=== PATIENT | male | born 1975 | race African-American/Black ===

== ENCOUNTER 2017-05-26 22:48 | Emergency (ER) | payer OTHER ==
[~2017-05-26] VITALS: Ht 170.2 cm; Wt 103.4 kg
--- NOTE | 2017-05-26 23:39 | ED.ADGEN ---
Past History Past Medical History: Diabetes, High Cholesterol, Pancreatitis, Other Adult General Chief Complaint Chief Complaint "Maybe I got ahold of some bad food or something.. I hurt in my abd. everywhere.. Nausea .. cramping. " HPI HPI Patient is a 41 year old male who presents with above hx and complaints of abd. pain, nausea , vomiting. Pt. denies travel, specific ill contacts, trauma or change in meds. Pt. localized pain primary in mid abdomen. Pt. denies any changes in stool or dysuria. Pt. reports increased urination because not taken his diabetic meds. Pt. states he never had any pancreatitis, colitis or gastritis. Pt. advise he has not drank any alcohol for over 9 years. Pt. has been in [facility] patient 10 treated for the past 9 years and is currently house at [facility]. Review of Systems Review of Systems Constitutional: Denies fever or chills [] Eyes: Denies change in visual acuity, redness, or eye pain [] HENT: Denies nasal congestion or sore throat [] Respiratory: Denies cough or shortness of breath [] Cardiovascular: No additional information not addressed in HPI [] GI: Complaints of abdominal pain, nausea, vomiting, . Denies bloody stools or diarrhea [] : Denies dysuria or hematuria [] Musculoskeletal: Denies back pain or joint pain [] Integument: Denies rash or skin lesions [] Neurologic: Denies headache, focal weakness or sensory changes [] Endocrine: Denies polyuria or polydipsia [] Family History Family History Non-contributory Current Medications Current Medications Current Medications Medications (Trade) Dose Ordered Sig/Luis Start Time Stop Time Status Last Admin Dose Admin Famotidine (Pepcid) 20 mg 1X ONCE 05/27/17 01:45 05/27/17 01:46 DC 05/27/17 02:10 20 MG Iohexol (Omnipaque 240 Mg/ml) 50 ml 1X ONCE 05/27/17 03:00 05/27/17 03:01 DC 05/27/17 03:16 50 ML Iohexol (Omnipaque 300 Mg/ml) 75 ml 1X ONCE 05/27/17 03:00 05/27/17 03:01 DC Morphine Sulfate (Morphine 10mg Syringe) 10 mg 1X ONCE 05/27/17 01:45 05/27/17 01:46 DC 05/27/17 02:10 10 MG Ondansetron HCl (Zofran) 8 mg 1X ONCE 05/27/17 01:45 05/27/17 01:46 DC 05/27/17 02:10 8 MG See Nursing for home meds. Allergies Allergies Allergies Coded Allergies Type Severity Reaction Last Updated Verified No Known Drug Allergies 05/27/17 No Physical Exam Physical Exam Constitutional: moderate distress, non-toxic appearance. [] HENT: Normocephalic, atraumatic, bilateral external ears normal, oropharynx moist, no oral exudates, nose normal. Multiple tattoos. Eyes: PERRLA, EOMI, conjunctiva normal, no discharge. [] Neck: Normal range of motion, no tenderness, supple, no stridor. [] Cardiovascular:Bradycardia rate regular rhythm, no murmur [] Lungs & Thorax: Bilateral breath sounds equal at apexes on auscultation [] Abdomen: Bowel sounds normal, soft, generalized tenderness, no masses, no pulsatile masses. Localizes to mid abd. with palpation and rebound. Skin: Warm, dry, no erythema, no rash. Tattoos. Back: No tenderness, no CVA tenderness. [] Extremities: No tenderness, no cyanosis, no clubbing, ROM intact, no edema. [] Neurologic: Alert and oriented X 3, normal motor function, normal sensory function, no focal deficits noted. [] Psychologic: Affect normal, judgement normal, mood normal. [] Current Patient Data Vital Signs Vital Signs Date Time Temp Pulse Resp B/P (MAP) Pulse Ox O2 Delivery O2 Flow Rate FiO2 05/27/17 02:10 97 05/27/17 01:10 98.2 77 16 Lab Results Laboratory Tests Test 05/27/17 02:10 05/27/17 03:30 05/27/17 04:20 White Blood Count 7.2 x10^3/uL (4.0-11.0) Red Blood Count 5.29 x10^6/uL (4.30-5.70) Hemoglobin 14.5 g/dL (13.0-17.5) Hematocrit 42.5 % (39.0-53.0) Mean Corpuscular Volume 81 fL (79-100) Mean Corpuscular Hemoglobin 27 pg (25-35) Mean Corpuscular Hemoglobin Concent 34 g/dL (31-37) Red Cell Distribution Width 14.1 % (11.5-14.5) Platelet Count 271 x10^3/uL (140-400) Neutrophils (%) (Auto) 64 % (31-73) Lymphocytes (%) (Auto) 26 % (24-48) Monocytes (%) (Auto) 8 % (0-9) Eosinophils (%) (Auto) 2 % (0-3) Basophils (%) (Auto) 1 % (0-3) Neutrophils # (Auto) 4.6 x10^3uL (1.8-7.7) Lymphocytes # (Auto) 1.8 x10^3/uL (1.0-4.8) Monocytes # (Auto) 0.6 x10^3/uL (0.0-1.1) Eosinophils # (Auto) 0.2 x10^3/uL (0.0-0.7) Basophils # (Auto) 0.1 x10^3/uL (0.0-0.2) Prothrombin Time 10.4 SEC (9.4-11.4) Prothrombin Time INR 1.0 (0.9-1.1) PTT 28 SEC (23-33) Sodium Level 136 mmol/L (136-145) Potassium Level 3.6 mmol/L (3.5-5.1) Chloride Level 101 mmol/L (98-107) Carbon Dioxide Level 27 mmol/L (21-32) Anion Gap 8 (6-14) Blood Urea Nitrogen 7 mg/dL (8-26) L Creatinine 0.7 mg/dL (0.7-1.3) Estimated GFR (Cockcroft-Gault) 151.9 BUN/Creatinine Ratio 10 (6-20) Glucose Level 266 mg/dL (70-99) H Calcium Level 8.8 mg/dL (8.5-10.1) Total Bilirubin 0.3 mg/dL (0.2-1.0) Direct Bilirubin 0.1 mg/dL (0.0-0.2) Aspartate Amino Transferase (AST) 10 U/L (15-37) L Alanine Aminotransferase (ALT) 20 U/L (16-63) Alkaline Phosphatase 83 U/L (46-116) Creatine Kinase 81 U/L (39-308) Creatine Kinase MB (Mass) 0.5 ng/mL (0.0-3.6) Creatine Kinase MB Relative Index 0.6 % (0-4) Troponin I Quantitative < 0.017 ng/mL (0-0.055) Total Protein 7.1 g/dL (6.4-8.2) Albumin 3.1 g/dL (3.4-5.0) L Albumin/Globulin Ratio 0.8 (1.0-1.7) L Lipase 648 U/L (73-393) H Amylase Level 78 U/L (25-115) Urine Collection Type Unknown Urine Color Yellow Urine Clarity Clear Urine pH 6.5 Urine Specific [place] 1.010 Urine Protein 100 mg/dl (NEG-TRACE) Urine Glucose (UA) 500 mg/dL (NEG) Urine Ketones (Stick) 15 mg/dL (NEG) Urine Blood Neg (NEG) Urine Nitrite Neg (NEG) Urine Bilirubin Neg (NEG) Urine Urobilinogen Dipstick 0.2 mg/dL (0.2 mg/dL) Urine Leukocyte Esterase Neg (NEG) Urine RBC 0 /HPF (0-2) Urine WBC 0 /HPF (0-4) Urine Squamous Epithelial Cells Few /LPF Urine Bacteria Few /HPF (0-FEW) Urine Opiates Screen Pos (NEG) Urine Methadone Screen Neg (NEG) Urine Barbiturates Neg (NEG) Urine Phencyclidine Screen Neg (NEG) Urine Amphetamine/Methamphetamine Neg (NEG) Urine Benzodiazepines Screen Neg (NEG) Urine Cocaine Screen Neg (NEG) Urine Cannabinoids Screen Neg (NEG) Urine Ethyl Alcohol Neg (NEG) EKG EKG My interpretation of EKG shows sinus rhythm at 63 bpm. Some mild leftward axis. Some J-point elevations in V2 3 and 4,5 and 6. No marked contralateral changes.[ ] Radiology/Procedures Radiology/Procedures My interpretation of Acute Abd. shows no free air in the diaphragm. There is a nodular blunting right diaphragm closed phrenic angle. Nonspecific bowel gas pattern. Some suggestion of gallstones. CT of abdomen shows findings consistent with pancreatitis. No free fluid. No free air. There is a right renal lesion or cyst. Gallstones Course & Med Decision Making Course & Med Decision Making Pertinent Labs and Imaging studies reviewed. (See chart for details). Discussed options of treatments with patient. Patient declining admission at this time. States he will stay on clear fluids and follow up with a primary care. Review all lab and xray results with primary. [] Final Impression Final Impression 1. Abdomen pain 2. Elevated Lipase 3. DM 4. Right renal cyst/mass 5. Acute pancreatitis [] Problems: Dragon Disclaimer Dragon Disclaimer This electronic medical record was generated, in whole or in part, using a voice recognition dictation system. ALICE VELASQUEZ MD May 26, 2017 23:39
[2017-05-27] MEDS ORDERED: MORPHINE SULFATE 10 MG/ML SYRINGE. SQ ONE (01:45)
[2017-05-27] MEDS ORDERED: FAMOTIDINE 20 MG/2 ML VIAL IVP ONE (01:45)
[2017-05-27] MEDS ORDERED: ONDANSETRON PF 4 MG/2 ML VIAL. IV ONE (01:45)
[2017-05-27 02:38] LABS: BASO # 0.1 x10^3/uL (0.0-0.2); BASO % 1 % (0-3); EOS # 0.2 x10^3/uL (0.0-0.7); EOS % 2 % (0-3); HEMATOCRIT 42.5 % (39.0-53.0); HEMOGLOBIN 14.5 g/dL (13.0-17.5); LYMPH # 1.8 x10^3/uL (1.0-4.8); LYMPH % 26 % (24-48); MEAN CORPUSCULAR HEMOGLOBIN 27 pg (25-35); MEAN CORPUSCULAR HGB CONC 34 g/dL (31-37); MEAN CORPUSCULAR VOLUME 81 fL (79-100); MONO # 0.6 x10^3/uL (0.0-1.1); MONO % 8 % (0-9); NEUT # 4.6 x10^3uL (1.8-7.7); NEUT % 64 % (31-73); PLATELET COUNT 271 x10^3/uL (140-400); RED BLOOD COUNT 5.29 x10^6/uL (4.30-5.70); RED CELL DISTRIBUTION WIDTH 14.1 % (11.5-14.5); WHITE BLOOD COUNT 7.2 x10^3/uL (4.0-11.0)
[2017-05-27 02:48] LABS: ALBUMIN 3.1 g/dL (3.4-5.0); ALBUMIN/GLOBULIN RATIO 0.8 (1.0-1.7); CALCIUM 8.8 mg/dL (8.5-10.1); CREATININE 0.7 mg/dL (0.7-1.3); DIRECT BILIRUBIN 0.1 mg/dL (0.0-0.2); GFR 151.9; POTASSIUM 3.6 mmol/L (3.5-5.1); TOTAL BILIRUBIN 0.3 mg/dL (0.2-1.0); TOTAL PROTEIN 7.1 g/dL (6.4-8.2)
[2017-05-27] MEDS ORDERED: IOHEXOL 240 MG/ML 50ML VIAL. PO ONE (03:00)
[2017-05-27] MEDS ORDERED: IOHEXOL 300 MG/ML 75 ML VIAL. IV ONE ×2 (03:00)
--- NOTE | 2017-05-27 04:06 | RAD ---
CT abdomen and pelvis with contrast HISTORY: Abdominal pain. TECHNIQUE: Helical CT imaging of the abdomen and pelvis acquired with oral contrast and 75 mL Omnipaque 300 intravenous contrast. Abdomen findings: Edema and enlargement of the head and body of the pancreas consistent with pancreatitis. Portal vein and splenic vein demonstrate patent contrast enhancement. Gallstones. Right renal upper pole 2 cm cyst density of 10 units. Separate right renal upper pole 1 cm nonspecific hypodense lesion coronal images 43-44. This has a density of 15 units. Left kidney, adrenal glands, spleen and liver are unremarkable. Mild reflux of contrast distal esophagus. Mild discoid atelectasis right lower lobe. Sigmoid colon diverticulosis. Appendix is negative. No abdominal fluid or adenopathy. Pelvis findings: Bladder, prostate, rectum and bones are unremarkable. No fluid or adenopathy. IMPRESSION: 1. Acute pancreatitis. 2. 2 cm right renal cyst. There is also a 1 cm indeterminate mildly dense right renal upper pole lesion could be a hemorrhagic cyst or a neoplastic solid mass. This could be further characterized by renal sonography. 3. The appendix is negative. 4. Cholelithiasis. Exposure: One or more of the following individualized dose reduction techniques were utilized for this examination: 1. Automated exposure control 2. Adjustment of the mA and/or kV according to patient size 3. Use of iterative reconstruction technique Electronically signed by: Dustin Raymond MD (05/27/2017 4:00 AM) [id number]
[2017-05-27 05:01] LABS: BARBITURATES NEG (NEG); BENZODIAZEPINES NEG (NEG); CANNABINOIDS NEG (NEG); COCAINE NEG (NEG); METHADONE NEG (NEG); OPIATES POS (NEG); PHENCYCLIDINE NEG (NEG)
[2017-05-27 05:02] LABS: BILIRUBIN,URINE NEG (NEG); CLARITY,URINE CLEAR; COLOR,URINE YELLOW; GLUCOSE,URINE 500 mg/dL (NEG)
[2017-05-27 05:03] LABS: BACTERIA,URINE FEW /HPF (0-FEW); NITRITE,URINE NEG (NEG); RBC,URINE 0 /HPF (0-2); SQUAMOUS EPITHELIAL CELL,UR FEW /LPF; UROBILINOGEN,URINE 0.2 mg/dL (0.2 mg/dL); WBC,URINE 0 /HPF (0-4)
[2017-05-27 05:06] LABS: AMPHETAMINE/METHAMPHETAMINE NEG (NEG)
[2017-05-27] MEDS ORDERED: RANI150T6 PO (05:08)
[2017-05-27] MEDS ORDERED: ONDA8TAB12 PO (05:08)
[2017-05-27 05:10] VITALS: BP 141/89
--- NOTE | 2017-05-27 08:51 | RAD ---
Acute abdominal series to include a PA chest radiograph 05/27/2017 Clinical History: Abdominal pain. A PA digital radiograph of the chest was obtained. Two AP supine and an erect AP digital radiographs of the abdomen/pelvis were obtained. No previous studies are available for comparison. The cardiac and mediastinal silhouettes are within normal limits in size and configuration. Right basilar subsegmental atelectasis is seen. No area of consolidation is noted. No pleural effusion or pneumothorax is noted. The abdominal bowel gas pattern is nonobstructive. Moderate amount of stool is seen throughout the colon. There is no evidence of free air. No radiopaque calculus is seen. The osseous structures are grossly intact. Impression: Nonobstructive bowel gas pattern.
--- NOTE | 2017-05-28 07:41 | EKG ---
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
== END 2017-05-27 05:15 | disposition home or self-care (01) ==
LOC: ER 22:48
DX: N28.1 Cyst of kidney, acquired (principal); K85.90 Acute pancreatitis without necrosis or infection, unspecified; R74.8 Abnormal levels of other serum enzymes; E11.9 Type 2 diabetes mellitus without complications; E78.00 Pure hypercholesterolemia, unspecified
CPT/HCPCS: 36415; 74022; 74177; 80053; 80076; 80307; 81001; 82150; 82553; 83690; 84484; 85025; 85610; 85730; 93005; 96372; 96374; 96375; 99285; J2270; J2405; Q9966; Q9967; S0028; G0479

== ENCOUNTER 2017-05-28 20:50 | Inpatient (IN) | payer OTHER ==
[~2017-05-28] VITALS: Ht 172.7 cm; Wt 103.6 kg
[~2017-05-28 20:50] MED LIST: ONDA8TAB12 PO; RANI150T6 PO
--- NOTE | 2017-05-28 22:17 | ED.ADGEN ---
Past History Past Medical History: Diabetes, High Cholesterol, Pancreatitis, Other Alcohol Use: None Drug Use: None Adult General Chief Complaint Chief Complaint " I tried to the clear fluids.. but my gut is hurting worse.. I ve never has stuff like this before..." HPI HPI Patient is a 41 year old male [facility] resident who presents with generalized mid abd. pain. Pt seen previously and dx of pancreatitis by lab and CT. Pt. wanted to try out pt. management. Pt. states he has been on only clear fluids, but he is nauseated.. and pain has not gotten better. Review of Systems Review of Systems Constitutional: Denies fever or chills [] Eyes: Denies change in visual acuity, redness, or eye pain [] HENT: Denies nasal congestion or sore throat [] Respiratory: Denies cough or shortness of breath [] Cardiovascular: No additional information not addressed in HPI [] GI: abdominal pain, nausea, vomiting, : Denies dysuria or hematuria [] Musculoskeletal: Denies back pain or joint pain [] Integument: Denies rash or skin lesions [] Neurologic: Denies headache, focal weakness or sensory changes [] Endocrine: Denies polyuria or polydipsia [] Family History Family History DM Current Medications Current Medications Current Medications Medications (Trade) Dose Ordered Sig/Luis Start Time Stop Time Status Last Admin Dose Admin Famotidine (Pepcid) 20 mg 1X ONCE 05/28/17 22:30 05/28/17 23:46 DC 05/28/17 23:14 20 MG Magnesium Hydroxide (Milk Of Magnesia) 2,400 mg 1X ONCE 05/28/17 22:30 05/28/17 23:46 DC 05/28/17 23:11 2,400 MG Morphine Sulfate (Morphine 10mg Syringe) 10 mg 1X ONCE 05/28/17 22:30 05/28/17 23:46 DC 05/28/17 22:30 10 MG Ondansetron HCl (Zofran) 8 mg 1X ONCE 05/28/17 22:30 05/28/17 23:46 DC 05/28/17 23:12 8 MG Sodium Chloride 1,000 ml @ 1,000 mls/hr Q1H 05/28/17 22:18 05/28/17 23:46 DC 05/28/17 23:12 1,000 MLS/HR Allergies Allergies Allergies Coded Allergies Type Severity Reaction Last Updated Verified No Known Drug Allergies 05/27/17 No Physical Exam Physical Exam Constitutional: Well developed, well nourished, in acute distress, non-toxic appearance. [] HENT: Normocephalic, atraumatic, bilateral external ears normal, oropharynx dry , no oral exudates, nose normal. [] Eyes: PERRLA, EOMI, conjunctiva normal, no discharge. [] Neck: Normal range of motion, no tenderness, supple, no stridor. [] Cardiovascular:Tachycardia rate regular rhythm, no murmur [] Lungs & Thorax: Bilateral breath sounds clear to auscultation [] Abdomen: Bowel sounds normal, soft,mid abd. tenderness, no masses, no pulsatile masses. Declines rectal. Skin: Warm, dry, no erythema, no rash. Multiple tattoos. Back: No tenderness, no CVA tenderness. [] Extremities: No tenderness, no cyanosis, no clubbing, ROM intact, no edema. [] Neurologic: Alert and oriented X 3, normal motor function, normal sensory function, no focal deficits noted. [] Psychologic: Affect anxious, judgement normal, mood normal. [] Current Patient Data Vital Signs Vital Signs Date Time Temp Pulse Resp B/P (MAP) Pulse Ox O2 Delivery O2 Flow Rate FiO2 05/28/17 22:30 20 98 05/28/17 22:05 98.0 86 Lab Results Laboratory Tests Test 05/28/17 22:28 05/28/17 22:55 Urine Collection Type Unknown Urine Color Yellow Urine Clarity [place] Urine pH 7.0 Urine Specific [place] 1.010 Urine Protein 30 mg/dl (NEG-TRACE) Urine Glucose (UA) >=1000 mg/dL (NEG) Urine Ketones (Stick) Neg mg/dL (NEG) Urine Blood Neg (NEG) Urine Nitrite Neg (NEG) Urine Bilirubin Neg (NEG) Urine Urobilinogen Dipstick 0.2 mg/dL (0.2 mg/dL) Urine Leukocyte Esterase Neg (NEG) Urine RBC Occ /HPF (0-2) Urine WBC 1-4 /HPF (0-4) Urine Squamous Epithelial Cells Few /LPF Urine Bacteria 0 /HPF (0-FEW) Urine Opiates Screen Neg (NEG) Urine Methadone Screen Neg (NEG) Urine Barbiturates Neg (NEG) Urine Phencyclidine Screen Neg (NEG) Urine Amphetamine/Methamphetamine Neg (NEG) Urine Benzodiazepines Screen Neg (NEG) Urine Cocaine Screen Neg (NEG) Urine Cannabinoids Screen Neg (NEG) Urine Ethyl Alcohol Neg (NEG) White Blood Count 8.8 x10^3/uL (4.0-11.0) Red Blood Count 5.15 x10^6/uL (4.30-5.70) Hemoglobin 14.2 g/dL (13.0-17.5) Hematocrit 41.5 % (39.0-53.0) Mean Corpuscular Volume 81 fL (79-100) Mean Corpuscular Hemoglobin 28 pg (25-35) Mean Corpuscular Hemoglobin Concent 34 g/dL (31-37) Red Cell Distribution Width 14.1 % (11.5-14.5) Platelet Count 282 x10^3/uL (140-400) Neutrophils (%) (Auto) 64 % (31-73) Lymphocytes (%) (Auto) 24 % (24-48) Monocytes (%) (Auto) 9 % (0-9) Eosinophils (%) (Auto) 2 % (0-3) Basophils (%) (Auto) 1 % (0-3) Neutrophils # (Auto) 5.7 x10^3uL (1.8-7.7) Lymphocytes # (Auto) 2.1 x10^3/uL (1.0-4.8) Monocytes # (Auto) 0.8 x10^3/uL (0.0-1.1) Eosinophils # (Auto) 0.1 x10^3/uL (0.0-0.7) Basophils # (Auto) 0.1 x10^3/uL (0.0-0.2) Sodium Level 133 mmol/L (136-145) L Potassium Level 3.8 mmol/L (3.5-5.1) Chloride Level 98 mmol/L (98-107) Carbon Dioxide Level 30 mmol/L (21-32) Anion Gap 5 (6-14) L Blood Urea Nitrogen 7 mg/dL (8-26) L Creatinine 0.8 mg/dL (0.7-1.3) Estimated GFR (Cockcroft-Gault) 130.2 BUN/Creatinine Ratio 9 (6-20) Glucose Level 384 mg/dL (70-99) H Calcium Level 9.4 mg/dL (8.5-10.1) Total Bilirubin 0.3 mg/dL (0.2-1.0) Aspartate Amino Transferase (AST) 10 U/L (15-37) L Alanine Aminotransferase (ALT) 20 U/L (16-63) Alkaline Phosphatase 88 U/L (46-116) Total Protein 7.4 g/dL (6.4-8.2) Albumin 3.3 g/dL (3.4-5.0) L Albumin/Globulin Ratio 0.8 (1.0-1.7) L Amylase Level 81 U/L (25-115) Lipase 721 U/L (73-393) H EKG EKG [] Radiology/Procedures Radiology/Procedures See prior CT /Xray[] Course & Med Decision Making Course & Med Decision Making Pertinent Labs and Imaging studies reviewed. (See chart for details) Discussed presentation, testing and tx. plan with Dr. Rey. Will admit- for further tx. and eval. [] Final Impression Final Impression 1. Abdomen Pain 2. Pancreatitis[] 3. Diabetes 4. Elevated Lipase 5. Dehydration Problems: Dragon Disclaimer Dragon Disclaimer This electronic medical record was generated, in whole or in part, using a voice recognition dictation system. ALICE VELASQUEZ MD May 28, 2017 22:17
[2017-05-28] MEDS ORDERED: IV NORMAL SALINE 1,000ML 1,000 ML IV SCH (22:18)
[2017-05-28] MEDS ORDERED: MAGNESIUM HYDROXIDE 2,400 MG/30 ML ORAL.SUSP. PO ONE (22:30)
[2017-05-28] MEDS ORDERED: ONDANSETRON PF 4 MG/2 ML VIAL. IV ONE (22:30)
[2017-05-28] MEDS ORDERED: FAMOTIDINE 20 MG/2 ML VIAL IVP ONE (22:30)
[2017-05-28] MEDS ORDERED: MORPHINE SULFATE 10 MG/ML SYRINGE. SQ ONE (22:30)
[2017-05-28 22:57] LABS: BARBITURATES NEG (NEG); BENZODIAZEPINES NEG (NEG); CANNABINOIDS NEG (NEG); COCAINE NEG (NEG); METHADONE NEG (NEG); OPIATES NEG (NEG); PHENCYCLIDINE NEG (NEG)
[2017-05-28 22:58] LABS: AMPHETAMINE/METHAMPHETAMINE NEG (NEG); BILIRUBIN,URINE NEG (NEG); CLARITY,URINE HAZY; COLOR,URINE YELLOW; GLUCOSE,URINE >=1000 mg/dL (NEG); NITRITE,URINE NEG (NEG); UROBILINOGEN,URINE 0.2 mg/dL (0.2 mg/dL)
[2017-05-28 22:59] LABS: BACTERIA,URINE 0 /HPF (0-FEW); RBC,URINE OCC /HPF (0-2); SQUAMOUS EPITHELIAL CELL,UR FEW /LPF
[2017-05-28 23:15] LABS: BASO # 0.1 x10^3/uL (0.0-0.2); BASO % 1 % (0-3); EOS # 0.1 x10^3/uL (0.0-0.7); EOS % 2 % (0-3); HEMATOCRIT 41.5 % (39.0-53.0); HEMOGLOBIN 14.2 g/dL (13.0-17.5); LYMPH # 2.1 x10^3/uL (1.0-4.8); LYMPH % 24 % (24-48); MEAN CORPUSCULAR HEMOGLOBIN 28 pg (25-35); MEAN CORPUSCULAR HGB CONC 34 g/dL (31-37); MEAN CORPUSCULAR VOLUME 81 fL (79-100); MONO # 0.8 x10^3/uL (0.0-1.1); MONO % 9 % (0-9); NEUT # 5.7 x10^3uL (1.8-7.7); NEUT % 64 % (31-73); PLATELET COUNT 282 x10^3/uL (140-400); RED BLOOD COUNT 5.15 x10^6/uL (4.30-5.70); RED CELL DISTRIBUTION WIDTH 14.1 % (11.5-14.5); WHITE BLOOD COUNT 8.8 x10^3/uL (4.0-11.0)
[2017-05-28 23:24] LABS: ALBUMIN 3.3 g/dL (3.4-5.0); ALBUMIN/GLOBULIN RATIO 0.8 (1.0-1.7); CALCIUM 9.4 mg/dL (8.5-10.1); CREATININE 0.8 mg/dL (0.7-1.3); GFR 130.2; POTASSIUM 3.8 mmol/L (3.5-5.1); TOTAL BILIRUBIN 0.3 mg/dL (0.2-1.0); TOTAL PROTEIN 7.4 g/dL (6.4-8.2)
[2017-05-29] MEDS ORDERED: INSULIN REGULAR 100 UNIT/ML 10ML VIAL. IV ONE
[2017-05-29 00:43] VITALS: BP 168/80
[2017-05-29] MEDS ORDERED: DEXTROSE 50% 25 GM / 50ML DISP.SYRIN. IV PRN (00:45)
[2017-05-29] MEDS ORDERED: ONDANSETRON PF 4 MG/2 ML VIAL. IV PRN (00:45)
[2017-05-29] MEDS ORDERED: ASPI81TA44 PO (01:24)
[2017-05-29] MEDS ORDERED: PNEUMOCOCCAL VAX SCREEN. MC PRN (01:45)
[2017-05-29] MEDS ORDERED: Influenza vaccine per PROTOCOL. MC PRN (01:45)
[2017-05-29] MEDS: IV RINGERS SOLUTION,LACTATED 1,000 ML IV SCH ×4 (01:58→21:34)
[2017-05-29 06:07] VITALS: BP 149/96
--- NOTE | 2017-05-29 06:29 | EKG ---
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
[2017-05-29] MEDS ORDERED: MORPHINE SULFATE 10 MG/ML SYRINGE. SQ PRN (06:30)
[2017-05-29] MEDS: INSULIN ASPART 300 UNITS/3 ML INSULN.PEN SQ SCH ×4 (07:30→21:36)
[2017-05-29] MEDS ORDERED: FLU VACC QS2017-18 (36MOS+)/PF 0.5 ML SYRINGE. VAX IM ONE (09:00)
[2017-05-29] MEDS ORDERED: PNEUMOC CONJ VACC 23-VALENT 0.5 ML VIAL. VAX IM ONE (09:00)
[2017-05-29] MEDS: FAMOTIDINE 20 MG/2 ML VIAL IVP SCH ×2 (09:04→21:34)
[2017-05-29 10:56] VITALS: BP 142/78
[2017-05-29 15:05] VITALS: BP 161/79
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
[2017-05-29 20:13] VITALS: BP 139/88
[2017-05-29 23:30] VITALS: BP 135/74
[2017-05-30] MEDS: IV RINGERS SOLUTION,LACTATED 1,000 ML IV SCH (04:28)
[2017-05-30 05:58] VITALS: BP 131/73
[2017-05-30 06:28] LABS: HEMOGLOBIN 14.6 g/dL (13.0-17.5); RED BLOOD COUNT 5.3 x10^6/uL (4.30-5.70); RED CELL DISTRIBUTION WIDTH 14.3 % (11.5-14.5); WHITE BLOOD COUNT 6.9 x10^3/uL (4.0-11.0)
[2017-05-30 06:42] LABS: ALBUMIN 2.9 g/dL (3.4-5.0); ALBUMIN/GLOBULIN RATIO 0.7 (1.0-1.7); CALCIUM 9.1 mg/dL (8.5-10.1); CREATININE 0.8 mg/dL (0.7-1.3); GFR 130.2; POTASSIUM 3.7 mmol/L (3.5-5.1); TOTAL BILIRUBIN 0.5 mg/dL (0.2-1.0); TOTAL PROTEIN 6.9 g/dL (6.4-8.2)
--- NOTE | 2017-05-30 07:50 | RAD ---
Abdominal ultrasound, 05/29/2017: History: Pancreatitis There is a prominent echogenic focus with posterior acoustic shadowing in the gallbladder compatible with a large gallstone. The gallbladder sanchez are not thickened. The common hepatic duct is of normal caliber. There is no evidence of a hepatic mass. The pancreas was largely obscured due to overlying bowel. No abnormal fluid collection is seen in the pancreatic region. The spleen is of normal size. A 2.2 cm cyst is present in the right kidney. The kidneys are otherwise unremarkable. The visualized portions of the abdominal aorta and inferior vena cava show no abnormality. No free fluid is evident in the abdomen. IMPRESSION: 1. Cholelithiasis. 2. Small right renal cyst. 3. Obscuration of the pancreas due to overlying bowel.
[2017-05-30] MEDS: FAMOTIDINE 20 MG/2 ML VIAL IVP SCH (08:04)
[2017-05-30] MEDS: INSULIN ASPART 300 UNITS/3 ML INSULN.PEN SQ SCH ×2 (08:09→12:27)
[2017-05-30 11:07] VITALS: BP 133/79
[2017-05-30] MEDS ORDERED: HYDR-2758 PO (11:32)
--- NOTE | 2017-05-30 13:01 | DS ---
DATE OF DISCHARGE: 05/30/2017 HOSPITAL COURSE: The patient is a 41-year-old male patient, a resident at [facility], who was seen initially in the Emergency Room on 05/27, diagnosed with acute pancreatitis. He refused admission; however, he came back, was started on liquid diet. According to the jail staff, did not require any pain medication. His lab work on admission showed a lipase of 721, today his lipase was down to 352. All his other labs are normal. We did abdominal ultrasound, which basically showed that there is a prominent echogenic focus with posterior acoustic shadowing in the gallbladder compatible with large gallstone. The gallbladder wall has not thickened. The common hepatic duct is of normal caliber. There is no evidence of hepatic mass. The pancreas was largely obscured due to overlying bowel. No abnormal fluid collection is seen in the pancreatic region. The spleen is of normal size. A 2.2 cm cyst is present in the right kidney. The kidneys are otherwise unremarkable. The visualized portion of the abdominal aorta and inferior vena cava showed no abnormality. No free fluid is evident in the abdomen. PHYSICAL EXAMINATION: GENERAL: On examining him today, he looked well and was clearly in no apparent respiratory distress, pale, but no jaundice, cyanosis, or thyromegaly. No jugular venous distention. No limb edema. VITAL SIGNS: His heart rate was 90, blood pressure was 133/79, temperature was 98.2, respiratory rate was 20, and oxygen saturation was 98%. HEAD, EYES, EARS, NOSE AND THROAT: Showed normocephalic, atraumatic. NECK: Supple. HEART: Showed normal first and second heart sounds with no gallop, rub or murmur. CHEST: Clear to auscultation. No crepitation or rhonchi. ABDOMEN: Distended, soft, nontender. No guarding or rigidity. No organomegaly. Hernial orifices intact. Bowel sounds normal. NEUROLOGIC: He is awake, alert, responding appropriately. Cranial nerves intact. He moves extremities without difficulty, ambulates without assistance or assistive devices. His intake was 2900, no output was recorded. LABORATORY DATA: His lab work this morning showed a serum sodium 138, potassium 3.7, chloride 101, bicarbonate 30, anion gap of 7, BUN 6, creatinine 0.8, estimated GFR was 130 mL per minute. His glucose was 224, calcium was 9.1. Total bilirubin, AST, ALT, alkaline phosphatase were normal. Total protein was 6.9, albumin was 2.9. Serum lipase was 352. His white cell count was 6900; hemoglobin 14.6; hematocrit 43; MCV 81 and platelet count 254,000. His urinalysis was unremarkable. Toxic screen was negative. Fasting lipid profile is still pending at the time of this dictation. His abdominal ultrasound showed that he has a large gallstone; however, the gallstone was not thickened. The common hepatic duct is of normal caliber. DISCHARGE MEDICATIONS: The patient will be discharged home on hydrocodone 5/325 one tablet every 6 hours as needed for pain. I will also start him on metformin as well as Amaryl. He claimed that somebody told him that metformin is bad for his kidneys exhibiting persistent hyperglycemia with damage of kidneys. He has also hypertension, hyperlipidemia, type 2 diabetes. DONTA GUILLORY MD DR: ROSALINA/florence JOB#: [id number] / [id number]
== END 2017-05-30 13:00 | disposition home or self-care (01) | DRG 440 ==
LOC: ER 20:50 → EEVIPCON 23:30 → 1 SOUTH 23:30 → OBSVTOIN 05-29 01:11
PROVIDERS: ADMIT Family Medicine; ATTEND Family Medicine
DX: K85.90 Acute pancreatitis without necrosis or infection, unspecified (principal); N28.1 Cyst of kidney, acquired; E11.9 Type 2 diabetes mellitus without complications; K80.20 Calculus of gallbladder without cholecystitis without obstruction; E86.0 Dehydration; E78.5 Hyperlipidemia, unspecified; Z87.891 Personal history of nicotine dependence
CPT/HCPCS: 36415; 76700; 80053; 80061; 80307; 81001; 82150; 82947; 83690; 85025; 85027; 90686; 90732; 93005; 96361; 96372; 96374; 96375; G0378; G0379; J1815; J2270; J2405; J7120; S0028; 99285-25; G0479; J7030